=== PATIENT | female | born 1935 | race American Indian/Alaskan Native ===

== ENCOUNTER 2019-11-26 12:57 | Emergency (ER) | payer MEDICARE, BC, OTHER ==
--- NOTE | 2019-11-26 13:02 | EDM.PDOC ---
"ED HPI GENERAL MEDICAL PROBLEM - General Chief Complaint: Trauma Stated Complaint: FELL AND HIT HEAD Time Seen by Provider: 11/26/19 13:02 Source of Information: Reports: Patient, RN, RN Notes Reviewed History Limitations: Reports: No Limitations - History of Present Illness INITIAL COMMENTS - FREE TEXT/NARRATIVE: Pt presents to ER from work by POV with c/o that she tripped over a fan cord and bumped her head. Denies LOC, neck pain, or any other injury. She later admits to soreness of the left thigh and hip area, left shoulder and across the shoulders and neck. TRAUMA NOTES: ARRIVAL TIME: 1300HRS C-COLLAR STATUS: No collar. C-spin clear by Hx and exam using NEXUS criteria. SPINAL BOARD/IMMOBILIZATION STATUS: N/A GCS ON ARRIVAL: 15 Onset: Today, Sudden Duration: Resolved Prior to Arrival Location: Reports: Head Quality: Reports: Ache Severity: Mild Improves with: Reports: None Worsens with: Reports: None Associated Symptoms: Reports: No Other Symptoms - Related Data Allergies Allergy/AdvReac Type Severity Reaction Status Date / Time No Known Allergies Allergy Verified 11/26/19 13:14 Home Meds: Home Meds Aspirin [Halfprin] 81 mg PO DAILY 11/26/19 [History] Metoprolol Tartrate 50 mg PO BID 11/26/19 [History] Raloxifene [Evista] 60 mg PO DAILY 11/26/19 [History] Triamterene/Hydrochlorothiazid [Triamterene-HCTZ 37.5-25 MG] 1 tab PO DAILY 11/26/19 [History] atorvaSTATin [Lipitor] 10 mg PO DAILY 11/26/19 [History] lisinopriL [Prinivil] 20 mg PO DAILY 11/26/19 [History] Past Medical History HEENT History: Reports: Impaired Vision Cardiovascular History: Reports: High Cholesterol, Hypertension Musculoskeletal History: Reports: Osteoarthritis Endocrine/Metabolic History: Reports: Osteoporosis Social & Family History - Family History Family Medical History: Noncontributory - Tobacco Use Smoking Status *Q: Never Smoker - Alcohol Use Alcohol Use History: No - Living Situation & Occupation Occupation: Employed Review of Systems - Review of Systems Review Of Systems: Comprehensive ROS is negative, except as noted in HPI. ED EXAM, GENERAL - Physical Exam Exam: See Below Free Text/Narrative:: PRIMARY TRAUMA SURVEY (1302hrs) AIRWAY: Patent nasal and oral airways. BREATHING: Spontaneous respirations with clear B/L breath sounds. CIRCULATION: Heart RRR, intact distal pulses at all four extremities, no cyanosis. DEFORMITY/DISABILITY: Head is NC with tender hematoma and soft tissue swelling to the left frontal/forehead with no bony depression or crepitus and intact skin. Neck nontender to palpation with full ROM. No long bone deformities, moves all extremities without pain, ambulates steadily. Pelvis stable. No active bleeding. No neuro. deficits. Abdomen benign to exam. EXPOSURE: Skin warm, and dry. SECONDARY TRAUMA SURVEY FOLLOWS (1320hrs) Exam Limited By: No Limitations General Appearance: Alert, WD/WN, No Apparent Distress Eye Exam: Bilateral Eye: EOMI, Normal Inspection, PERRL Ears: Normal External Exam, Normal Canal, Hearing Grossly Normal, Normal TMs Nose: Normal Inspection, Normal Mucosa, No Blood Throat/Mouth: Normal Inspection, Normal Lips, Normal Teeth, Normal Gums, Normal Oropharynx, Normal Voice, No Airway Compromise Head: Normocephalic, Other (Forehead as per primary survey.) Neck: Normal Inspection, Supple, Non-Tender, Full Range of Motion Respiratory/Chest: No Respiratory Distress, Lungs Clear, Normal Breath Sounds, No Accessory Muscle Use, Chest Non-Tender Cardiovascular: Regular Rate, Rhythm GI/Abdominal: Normal Bowel Sounds, Soft, Non-Tender Back Exam: Normal Inspection Extremities: Normal Inspection, Normal Range of Motion, Non-Tender, Normal Capillary Refill Neurological: Alert, Oriented, CN II-XII Intact, Normal Cognition, Normal Gait, No Motor/Sensory Deficits, Other (GCS 15 on arrival and at discharge (<1 hour)) Psychiatric: Normal Affect, Normal Mood Skin Exam: Warm, Dry, Intact, No Rash Course - Vital Signs Last Recorded V/S: Last Vital Signs Temp 96.9 F 11/26/19 13:04 Pulse 68 11/26/19 13:04 Resp 18 11/26/19 13:04 BP 147/58 H 11/26/19 13:04 Pulse Ox 95 11/26/19 13:04 - Orders/Labs/Meds Orders: Active Orders 24 hr Category Date Time Status Head wo Cont [CT] Stat Exams 11/26/19 13:02 Ordered - Radiology Interpretation Free Text/Narrative:: [facility] [place] [facility] Final Radiology Report Call: [phone] assistance Online chat: [email or web address] Name: DANTE CAO Age: 83Years F Date: 11/26/2019 SSN: -- : [id number] Study: CT HEAD WO CONT Requesting Physician: KYRA LOMAS Images: [id number] Addl Studies: Provided Clinical History: Ground level fall, head injury on anticoagulant tx Contrast: Without Contrast Medium: Contrast Amount: Contrast Method: Page 1 of 2 PROCEDURE INFORMATION: Exam: CT Head Without Contrast Exam date and time: 11/26/2019 1:08 PM Age: 83 years old Clinical indication: Injury or trauma; Fall; Initial encounter; Blunt trauma (contusions or hematomas); Consciousness not specified; Additional info: Ground level fall, head injury on anticoagulant tx TECHNIQUE: Imaging protocol: Computed tomography of the head without contrast. Radiation optimization: All CT scans at this facility use at least one of these dose optimization techniques: automated exposure control; mA and/or kV adjustment per patient size (includes targeted exams where dose is matched to clinical indication); or iterative reconstruction. COMPARISON: No relevant prior studies available. FINDINGS: Brain: The brain demonstrates mild generalized volume loss. No hemorrhage or edema seen. Ventricles: No ventriculomegaly. Bones/joints: No acute calvarial fracture seen. Degenerative changes of the right temporomandibular joint. Sinuses: Visualized sinuses are unremarkable. No fluid levels. Mastoid air cells: Visualized mastoid air cells are well aerated. Soft tissues: Left frontal scalp soft tissue swelling with hematoma. IMPRESSION: No acute intracranial abnormality seen. Thank you for allowing us to participate in the care of your patient. DANTE CAO | Final Radiology Report CONFIDENTIALITY STATEMENT This report is intended only for use by the referring physician, and only in accordance with law. If you received this in error, call [phone]. Page 2 of 2 Dictated and Authenticated by: Ramandeep Diamond MD 11/26/2019 1:24 PM Central Time ([place] & [place]) Departure - Departure Time of Disposition: 13:32 Disposition: Home, Self-Care 01 Condition: Good Clinical Impression: Fall from ground level Traumatic hematoma of forehead Qualifiers: Encounter type: initial encounter Qualified Code(s): S00.83XA - Contusion of other part of head, initial encounter - Discharge Information *PRESCRIPTION DRUG MONITORING PROGRAM REVIEWED*: Not Applicable *COPY OF PRESCRIPTION DRUG MONITORING REPORT IN PATIENT CARA: Not Applicable Instructions: Facial or Scalp Contusion, Periosteal Hematoma, How to Use Cold Therapy, [id number] Forms: ED Department Discharge Additional Instructions: Apply ice pack to forehead to reduce pain and swelling. Tylenol at needed for pain. Follow directions on label for dosing and precautions. Follow up in clinic if any further concerns. Sepsis Event Note (ED) - Focused Exam Vital Signs: Vital Signs Temp Pulse Resp BP Pulse Ox 11/26/19 13:04 96.9 F 68 18 147/58 H 95 - My Orders Last 24 Hours: My Active Orders 11/26/19 13:02 Head wo Cont [CT] Stat - Assessment/Plan Last 24 Hours: My Active Orders 11/26/19 13:02 Head wo Cont [CT] Stat"
--- NOTE | 2019-11-26 13:24 | CT ---
PROCEDURE INFORMATION: Exam: CT Head Without Contrast Exam date and time: 11/26/2019 1:08 PM Age: 83 years old Clinical indication: Injury or trauma; Fall; Initial encounter; Blunt trauma (contusions or hematomas); Consciousness not specified; Additional info: Ground level fall, head injury on anticoagulant tx TECHNIQUE: Imaging protocol: Computed tomography of the head without contrast. Radiation optimization: All CT scans at this facility use at least one of these dose optimization techniques: automated exposure control; mA and/or kV adjustment per patient size (includes targeted exams where dose is matched to clinical indication); or iterative reconstruction. COMPARISON: No relevant prior studies available. FINDINGS: Brain: The brain demonstrates mild generalized volume loss. No hemorrhage or edema seen. Ventricles: No ventriculomegaly. Bones/joints: No acute calvarial fracture seen. Degenerative changes of the right temporomandibular joint. Sinuses: Visualized sinuses are unremarkable. No fluid levels. Mastoid air cells: Visualized mastoid air cells are well aerated. Soft tissues: Left frontal scalp soft tissue swelling with hematoma. IMPRESSION: No acute intracranial abnormality seen.
== END 2019-11-26 13:47 | disposition home or self-care (01) ==
LOC: DL.ED 12:57
DX: S00.83XA Contusion of other part of head, initial encounter (principal); E78.00 Pure hypercholesterolemia, unspecified; I10 Essential (primary) hypertension; M19.90 Unspecified osteoarthritis, unspecified site; Z79.82 Long term (current) use of aspirin; Z79.899 Other long term (current) drug therapy; W01.10XA Fall on same level from slipping, tripping and stumbling with subsequent striking against unspecified object, initial encounter
CPT/HCPCS: 70450; 99283-25

== ENCOUNTER 2019-12-27 08:50 | Emergency (ER) | payer MEDICARE, BC, OTHER ==
--- NOTE | 2019-12-27 09:38 | CT ---
PROCEDURE INFORMATION: Exam: CT Pelvis Without Contrast; Skeletal Exam date and time: 12/27/2019 9:16 AM Age: 83 years old Clinical indication: Hip pain; Left hip; Additional info: Bony pelvis pain, status post fall, left side TECHNIQUE: Imaging protocol: Computed tomography images of the pelvis without contrast. Exam focused on the skeletal structures. Radiation optimization: All CT scans at this facility use at least one of these dose optimization techniques: automated exposure control; mA and/or kV adjustment per patient size (includes targeted exams where dose is matched to clinical indication); or iterative reconstruction. COMPARISON: No relevant prior studies available. FINDINGS: Stomach and bowel: Colonic diverticulosis. Appendix: Normal appendix. Reproductive: The overall appearance of the uterus and ovaries is within normal limits. Incidentally noted vaginal pessary. Vasculature: Diffuse atherosclerosis. Bones/joints: Acute angulated and mildly displaced left subcapital proximal femur fracture. All other bones are intact and normally aligned. Small left hip joint effusion/hemarthrosis. Soft tissues: No soft tissue hematoma. IMPRESSION: 1. Acute left femur subcapital fracture. No soft tissue hematoma. The fracture is mildly displaced and angulated. 2. Other incidental findings include atherosclerosis and colonic diverticulosis.
[2019-12-27] MEDS ORDERED: HYDROmorphone 1 MG/ML Syringe IVPUSH ONE ×2 (10:05→14:31)
[2019-12-27] MEDS ORDERED: Ondansetron 4 MG/2 ML SDV IV ONE ×2 (10:05→14:31)
--- NOTE | 2019-12-27 10:23 | EDM.PDOC ---
"ED HPI GENERAL MEDICAL PROBLEM - General Chief Complaint: Lower Extremity Injury/Pain Stated Complaint: CALL IN/AMBULANCE Time Seen by Provider: 12/27/19 09:10 Source of Information: Reports: Patient, Family, RN, RN Notes Reviewed History Limitations: Reports: No Limitations - History of Present Illness INITIAL COMMENTS - FREE TEXT/NARRATIVE: Patient presents to the ED via EMS with daughter with complaints of left hip, left low back pain. The patient relates she has a history of one fall early in November for which she was treated in this ED; imaging was negative for fract ure and she was scheduled to follow up with her primary provider. She states she sustained one additional fall on 12/20/19 prior to her scheduled PCP appointment on 12/24/19, for which no imaging was obtained. She states the pain in her left hip has progressively worsened over the past several days to the point she is unable to lift her left leg, sit up, roll over, or ambulate. She describes the pain localized to the left hip as cramping and grabbing in nature. It radiates from the left lateral hip down into her left anterior thigh. She has been taking Tylenol 650mg q6h with no relief. Left Hip Pain Score (Numeric/FACES): 8 - Related Data Allergies Allergy/AdvReac Type Severity Reaction Status Date / Time No Known Allergies Allergy Verified 12/27/19 08:57 Home Meds: Home Meds Aspirin [Halfprin] 81 mg PO DAILY 11/26/19 [History] Metoprolol Tartrate 50 mg PO BID 11/26/19 [History] Raloxifene [Evista] 60 mg PO DAILY 11/26/19 [History] Triamterene/Hydrochlorothiazid [Triamterene-HCTZ 37.5-25 MG] 1 tab PO DAILY 11/26/19 [History] atorvaSTATin [Lipitor] 10 mg PO DAILY 11/26/19 [History] lisinopriL [Prinivil] 20 mg PO DAILY 11/26/19 [History] Past Medical History HEENT History: Reports: Impaired Vision Cardiovascular History: Reports: High Cholesterol, Hypertension Respiratory History: Reports: None Gastrointestinal History: Reports: None Genitourinary History: Reports: None ELECTRONIC IMAGER History: Reports: None Musculoskeletal History: Reports: Osteoarthritis Neurological History: Reports: None Psychiatric History: Reports: None Endocrine/Metabolic History: Reports: Osteoporosis Hematologic History: Reports: None Immunologic History: Reports: None Oncologic (Cancer) History: Reports: None Dermatologic History: Reports: None - Infectious Disease History Infectious Disease History: Reports: None - Past Surgical History Head Surgeries/Procedures: Reports: None Social & Family History - Family History Family Medical History: Noncontributory - Tobacco Use Smoking Status *Q: Never Smoker Second Hand Smoke Exposure: No - Caffeine Use Caffeine Use: Reports: None - Recreational Drug Use Recreational Drug Use: No - Living Situation & Occupation Occupation: Employed Review of Systems - Review of Systems Review Of Systems: Comprehensive ROS is negative, except as noted in HPI. ED EXAM, GENERAL - Physical Exam Exam: See Below Exam Limited By: No Limitations General Appearance: Alert, WD/WN, Mild Distress Throat/Mouth: Normal Inspection, Normal Voice, No Airway Compromise Head: Atraumatic, Normocephalic Neck: Normal Inspection, Supple, Non-Tender Respiratory/Chest: No Respiratory Distress, Lungs Clear, Normal Breath Sounds, No Accessory Muscle Use, Chest Non-Tender Cardiovascular: Regular Rate, Rhythm, No Edema, No Murmur, No Rub GI/Abdominal: Normal Bowel Sounds, Soft, Non-Tender, No Distention, No Mass (Female) Exam: Deferred Rectal (Female) Exam: Deferred Extremities: Leg Pain (To left upper leg), Limited Range of Motion (To left). No: Pedal Edema, Joint Swelling, Mottled, Redness Neurological: Alert, Oriented, CN II-XII Intact Skin Exam: Warm, Dry, Intact, Normal Color, No Rash. No: Erythema, Mottled Course - Vital Signs Last Recorded V/S: Last Vital Signs Temp 98.1 F 12/27/19 15:16 Pulse 96 12/27/19 15:16 Resp 18 12/27/19 15:16 BP 140/49 L 12/27/19 15:16 Pulse Ox 98 12/27/19 15:16 - Orders/Labs/Meds Orders: Active Orders 24 hr Category Date Time Status Insert Patel Catheter [Insert Urinary Catheter] [OM.PC] Care 12/27/19 09:30 Ordered Q24H Urinary Catheter Assessment [RC] ASDIRECTED Care 12/27/19 09:27 Active NPO Now [Nothing per Oral Now Diet] [DIET] Diet 12/27/19 Lunch Active Meds: Medications Discontinued Medications Generic Name Dose Route Start Last Admin Trade Name Freq PRN Reason Stop Dose Admin Hydromorphone HCl 1 mg 12/27/19 10:05 12/27/19 10:48 Dilaudid IVPUSH 12/27/19 10:06 1 mg ONETIME ONE Administration Hydromorphone HCl 1 mg 12/27/19 14:31 12/27/19 15:33 Dilaudid IVPUSH 12/27/19 14:32 1 mg ONETIME ONE Administration Ondansetron HCl 4 mg 12/27/19 10:05 12/27/19 10:48 Zofran IV 12/27/19 10:06 4 mg ONETIME ONE Administration Ondansetron HCl 4 mg 12/27/19 14:31 12/27/19 15:35 Zofran IV 12/27/19 14:32 4 mg ONETIME ONE Administration - Radiology Interpretation Free Text/Narrative:: [facility] [place] [facility] Final Radiology Report Call: [phone] assistance Online chat: [email or web address] Name: DANTE CAO Age: 83Years F Date: 12/27/2019 SSN: -- : 1935 Study: CT PELVIS WO CONT Requesting Physician: Magda Woodall Images: [id number] Addl Studies: Provided Clinical History: Bony pelvis pain, status post fall, left side Contrast: Without Contrast Medium: Contrast Amount: Contrast Method: Page 1 of 2 PROCEDURE INFORMATION: Exam: CT Pelvis Without Contrast; Skeletal Exam date and time: 12/27/2019 9:16 AM Age: 83 years old Clinical indication: Hip pain; Left hip; Additional info: Bony pelvis pain, status post fall, left side TECHNIQUE: Imaging protocol: Computed tomography images of the pelvis without contrast. Exam focused on the skeletal structures. Radiation optimization: All CT scans at this facility use at least one of these dose optimization techniques: automated exposure control; mA and/or kV adjustment per patient size (includes targeted exams where dose is matched to clinical indication); or iterative reconstruction. COMPARISON: No relevant prior studies available. FINDINGS: Stomach and bowel: Colonic diverticulosis. Appendix: Normal appendix. Reproductive: The overall appearance of the uterus and ovaries is within normal limits. Incidentally noted vaginal pessary. Vasculature: Diffuse atherosclerosis. Bones/joints: Acute angulated and mildly displaced left subcapital proximal femur fracture. All other bones are intact and normally aligned. Small left hip joint effusion/hemarthrosi s. Soft tissues: No soft tissue hematoma. IMPRESSION: 1. Acute left femur subcapital fracture. No soft tissue hematoma. The fracture is mildly displaced and angulated. 2. Other incidental findings include atherosclerosis and colonic diverticulosis. DANTE CAO | Final Radiology Report CONFIDENTIALITY STATEMENT This report is intended only for use by the referring physician, and only in accordance with law. If you received this in error, call [phone]. Page 2 of 2 Thank you for allowing us to participate in the care of your patient. Dictated and Authenticated by: Tim Corrales MD 12/27/2019 9:37 AM Central Time ([place] & [place]) - Re-Assessments/Exams Free Text/Narrative Re-Assessment/Exam: 12/27/19 11:43 Patient to transfer to [facility] in the care of Dr. Aguayo for left femur subcapital fracture. [facility] contacted with no beds available. Patient to be held in extended stay at this facility until a bed becomes available at [facility]. Departure - Departure Time of Disposition: 15:37 Disposition: DC/Tfer to Acute Hospital 02 Condition: Good Clinical Impression: Fracture of neck of femur, hip - Discharge Information *PRESCRIPTION DRUG MONITORING PROGRAM REVIEWED*: Not Applicable *COPY OF PRESCRIPTION DRUG MONITORING REPORT IN PATIENT CARA: Not Applicable Forms: ED Department Discharge, Interfacility Transfer GEOFF Sepsis Event Note (ED) - Evaluation Sepsis Screening Result: No Definite Risk - Focused Exam Vital Signs: Vital Signs Temp Pulse Resp BP Pulse Ox 12/27/19 15:16 98.1 F 96 18 140/49 L 98 12/27/19 13:49 97.3 F 99 20 114/43 L 97 12/27/19 11:24 97.5 F 98 16 110/50 L 96 12/27/19 10:25 98.1 F 86 16 135/70 98 12/27/19 08:58 98.0 F 108 H 16 137/59 L 97 - My Orders Last 24 Hours: My Active Orders 12/27/19 09:27 Urinary Catheter Assessment [RC] ASDIRECTED 12/27/19 09:30 Insert Patel Catheter [Insert Urinary Catheter] [OM.PC] Q24H - Assessment/Plan Last 24 Hours: My Active Orders 12/27/19 09:27 Urinary Catheter Assessment [RC] ASDIRECTED 12/27/19 09:30 Insert Patel Catheter [Insert Urinary Catheter] [OM.PC] Q24H"
== END 2019-12-27 15:45 ==
LOC: DL.ED 08:50
DX: S72.012A Unspecified intracapsular fracture of left femur, initial encounter for closed fracture (principal); E78.00 Pure hypercholesterolemia, unspecified; I10 Essential (primary) hypertension; M19.90 Unspecified osteoarthritis, unspecified site; Z79.82 Long term (current) use of aspirin; Z79.899 Other long term (current) drug therapy; W19.XXXA Unspecified fall, initial encounter
CPT/HCPCS: 51702; 72192; 96374; 96375; 96376; 99285; J1170; J2405; 99284

== ENCOUNTER 2019-12-31 13:12 | Inpatient (IN) | payer MEDICARE, BC, OTHER ==
[2019-12-31] MEDS ORDERED: Piperacillin/Tazobactam 3.375 GM in Sodium Chloride 0.9% 100 ML IV ONE (15:00)
[2019-12-31] MEDS ORDERED: oxyCODONE 5 MG Tab PO PRN (15:30)
--- NOTE | 2019-12-31 15:31 | PCM.HP ---
H&P History of Present Illness - General Date of Service: 12/31/19 Admit Problem/Dx: Admission Diagnosis/Problem Admission Diagnosis/Problem Sepsis Source of Information: Patient, Old Records, Provider - History of Present Illness Initial Comments - Free Text/Narative: Ms. Echavarrai is an 84-year-old female with medical history significant for hypertension, hyperlipidemia, TIA, breast cancer treated with tamoxifen and surgery, osteoporosis, GERD, and recent closed subcapital fracture of the left femur status post left hemiarthroplasty at [facility] in [place] who is admitted for probable sepsis. Patient was in the hospital in [place] for left hip fracture. She reports that she fell on 11/26/2019. Was seen in the ED where x-rays were obtained. X-ray was negative. Patient was discharged home and subsequently followed up with worsening left hip pain limiting her mobility. CT scan was obtained which showed left subcapital fracture and was transferred to [facility] for further management. Patient underwent left hemiarthroplasty. During hospitalization, patient reports that she was noted to have low hemoglobin was started on iron replacement. She also reports that she was taken off 1 of her blood pressure medications and started on sodium chloride tabs. Upon chart review, patient has leukocytosis with WBC count trending up from 6.4 to 18.2 today. Help her discharge vitals showed blood pressure 102/62 with a heart rate of 122 and temperature of 96.4. Vitals on presentation with systolic blood pressure of 105 for diastolic of 59 with a map of 53. Heart rate of 104. O2 saturation was 90% on room air. Patient reports left hip pain that is improved compared to when she was diagnosed with hip fracture. She reports that she has some bloody discharge from the surgical site which she was told should be expected. She reports that she has not been drinking much but also has had poor urine output. Reports that she feels bloated and gassy. Denies nausea and vomiting. She denies fevers, chills, cough, chest pain, shortness of breath, dysuria, hematuria, melena, hematochezia, or any new symptoms. - Related Data Allergies/Adverse Reactions: Allergies Allergy/AdvReac Type Severity Reaction Status Date / Time simvastatin Allergy Abdominal Verified 12/31/19 11:27 Pain Home Medications: Home Meds Aspirin [Halfprin] 81 mg PO DAILY 11/26/19 [History] Raloxifene [Evista] 60 mg PO BEDTIME 11/26/19 [History] atorvaSTATin [Lipitor] 10 mg PO BEDTIME 11/26/19 [History] lisinopriL [Prinivil] 20 mg PO DAILY 11/26/19 [History] Acetaminophen 1,000 mg PO BID 12/31/19 [History] Enoxaparin [Lovenox] 40 mg SUBCUT DAILY 12/31/19 [History] Metoprolol Tartrate [Lopressor] 50 mg PO BID 12/31/19 [History] Omeprazole 20 mg PO ACBREAKFAST 12/31/19 [History] Sodium Chloride 1 gm PO BID 12/31/19 [History] Zolpidem [Ambien] 5 mg PO BEDTIME PRN 12/31/19 [History] oxyCODONE 5 mg PO Q8H PRN 12/31/19 [History] polyethylene glycoL 3350 [Polyethylene Glycol 3350] 17 gm PO BID 12/31/19 [History] Past Medical History HEENT History: Reports: Impaired Vision Cardiovascular History: Reports: High Cholesterol, Hypertension Respiratory History: Reports: None Gastrointestinal History: Reports: None Genitourinary History: Reports: None [employer] History: Reports: None Musculoskeletal History: Reports: Osteoarthritis Neurological History: Reports: None Psychiatric History: Reports: None Endocrine/Metabolic History: Reports: Osteoporosis Hematologic History: Reports: None Immunologic History: Reports: None Oncologic (Cancer) History: Reports: None Dermatologic History: Reports: None - Infectious Disease History Infectious Disease History: Reports: None - Past Surgical History Head Surgeries/Procedures: Reports: None Social & Family History - Family History Family Medical History: Noncontributory - Caffeine Use Caffeine Use: Reports: None - Living Situation & Occupation Occupation: Employed H&P Review of Systems - Review of Systems: Review Of Systems: Comprehensive ROS is negative, except as noted in HPI. Exam - Exam Exam: See Below - Exam General: Alert, Oriented, Cooperative, Mild Distress HEENT: Conjunctiva Clear, EOMI, Hearing Intact Neck: Supple, Trachea Midline Lungs: Clear to Auscultation, Normal Respiratory Effort Cardiovascular: Regular Rhythm, Normal S1, Normal S2, Tachycardia GI/Abdominal Exam: Normal Bowel Sounds, Soft, Non-Tender, No Distention Extremities: Other (Left hip with surgical dressing in place, with bloody discharge. ) Skin: Warm, Dry, Intact (Except for surgical site) Neuro Extensive - Mental Status: Alert, Oriented x3, Normal Mood/Affect, Normal Cognition, Memory Intact Psychiatric: Alert, Normal Affect, Normal Mood - Problem List (1) Hyponatremia SNOMED Code(s): 64226402 ICD Code: E87.1 - HYPO-OSMOLALITY AND HYPONATREMIA Status: Acute Current Visit: Yes (2) Hyperlipidemia SNOMED Code(s): 46426866 ICD Code: E78.5 - HYPERLIPIDEMIA, UNSPECIFIED Status: Acute Current Visit: Yes (3) Hypertension SNOMED Code(s): 23638803 ICD Code: I10 - ESSENTIAL (PRIMARY) HYPERTENSION Status: Acute Current Visit: Yes (4) Anemia SNOMED Code(s): 508587844 ICD Code: D64.9 - ANEMIA, UNSPECIFIED Status: Acute Current Visit: Yes (5) GERD (gastroesophageal reflux disease) SNOMED Code(s): 539018006 ICD Code: K21.9 - GASTRO-ESOPHAGEAL REFLUX DISEASE WITHOUT ESOPHAGITIS Status: Acute Current Visit: Yes Problem List Initiated/Reviewed/Updated: Yes Orders Last 24hrs: Active Orders 24 hr Category Date Time Status Patient Status [ADT] Routine ADT 12/31/19 14:42 Active Oxygen Therapy [RC] PRN Care 12/31/19 14:42 Active VTE/DVT Education [RC] PER UNIT ROUTINE Care 12/31/19 14:42 Active Vital Signs [RC] Q4H Care 12/31/19 14:42 Active CULTURE BLOOD [BC] Stat Lab 12/31/19 14:45 Ordered CULTURE BLOOD [BC] Stat Lab 12/31/19 14:45 Ordered CULTURE URINE [RM] Routine Lab 12/31/19 14:46 Ordered ESR [SEDIMENTATION RATE MANUAL] [HEME] Routine Lab 12/31/19 15:14 Ordered SODIUM,NA [CHEM] Routine Lab 12/31/19 15:14 Ordered UA W/MICROSCOPIC [URIN] Routine Lab 12/31/19 14:46 Ordered Pharmacy to Dose - Vancomycin Med 12/31/19 14:45 Active 1 dose .XX ASDIRECTED Piperacillin/Tazobactam [Zosyn] 3.375 gm Med 12/31/19 15:00 Active Sodium Chloride 0.9% [Normal Saline] 100 ml IV ONETIME Vancomycin 1 gm Med 12/31/19 15:15 Active Sodium Chloride 0.9% [Normal Saline (AdvBag)] 250 ml IV ONETIME Blood Culture x2 Reflex Set [OM.PC] Stat Oth 12/31/19 14:44 Ordered Resuscitation Status Routine Resus Stat 12/31/19 14:41 Ordered Medication Orders Piperacillin Sod/Tazobactam (Sod 3.375 gm/ Sodium Chloride) 100 mls @ 200 mls/hr IV ONETIME ONE Stop: 12/31/19 15:29 Vancomycin HCl 1 gm/ Sodium (Chloride) 250 mls @ 166.667 mls/hr IV ONETIME ONE Stop: 12/31/19 16:44 Vancomycin HCl (Pharmacy To Dose - Vancomycin) 1 dose .XX ASDIRECTED [facility] Assessment/Plan Comment:: Probable sepsis: Patient with tachycardia, leukocytosis, and relatively low blood pressures given that her blood pressure medications have been held for a few days. Obtain 2 sets of blood cultures Start vancomycin and Zosyn Check UA and urine culture Check ESR and CRP I discussed with Dr. Deutsch who is kind enough to accept patient back to his service. #Hyponatremia, probable SIADH. Patient has had low sodium levels, last documented sodium level was from May 2019 which was 131. Her hydrochlorothiazide has been held for about 48 hours and she has been on sodium chloride tabs for about 48 hours. However, sodium level dropped from 126 to 122. Given the patient's pain is significantly improved compared to when she was initially admitted, uncertain if this is purely due to SIADH secondary to pain. Given her history of breast cancer, there is a possibility that she has SIADH due to malignancy. However, 1 would expect improvement with salt tabs and fluid restrictions. Obtain urine sodium Continue holding hydrochlorothiazide Continue sodium chloride tabs for now Monitor sodium levels #Acute on chronic anemia: Patient presented to the hospital in [place] with hemoglobin around 10. Hemoglobin of 7.7 today. Continue iron replacement Monitor CBC Transfuse for hemoglobin less than 7 or if hemodynamically unstable #Left hip fracture #Status post left hemiarthroplasty: Surgical site with small amount of blood draining. Defect management to orthopedic surgery #Hypertension: Blood pressures on the low side of normal. Given concern for possible sepsis, will hold blood pressure medications at this time Monitor blood pressures carefully GERD: Continue Prilosec #Hyperlipidemia Continue Lipitor DVT prophylaxis: Lovenox per orthopedic surgery GI prophylaxis: CODE STATUS: Full code per patient preference.
--- NOTE | 2019-12-31 15:45 | PCM.DCSUM1 ---
Discharge Summary - Hospital Course Free Text/Narrative:: HPI: Ms. Echavarria is an 84-year-old female with medical history significant for hypertension, hyperlipidemia, TIA, breast cancer treated with tamoxifen and surgery, osteoporosis, GERD, and recent closed subcapital fracture of the left femur status post left hemiarthroplasty at [facility] in [place] who is admitted for probable sepsis. Patient was in the hospital in [place] for left hip fracture. She reports that she fell on 11/26/2019. Was seen in the ED where x-rays were obtained. X-ray was negative. Patient was discharged home and subsequently followed up with worsening left hip pain limiting her mobility. CT scan was obtained which showed left subcapital fracture and was transferred to [facility] for further management. Patient underwent left hemiarthroplasty. During hospitalization, patient reports that she was noted to have low hemoglobin was started on iron replacement. She also reports that she was taken off 1 of her blood pressure medications and started on sodium chloride tabs. Upon chart review, patient has leukocytosis with WBC count trending up from 6.4 to 18.2 today. Help her discharge vitals showed blood pressure 102/62 with a heart rate of 122 and temperature of 96.4. Vitals on presentation with systolic blood pressure of 105 for diastolic of 59 with a map of 53. Heart rate of 104. O2 saturation was 90% on room air. Patient reports left hip pain that is improved compared to when she was diagnosed with hip fracture. She reports that she has some bloody discharge from the surgical site which she was told should be expected. She reports that she has not been drinking much but also has had poor urine output. Reports that she feels bloated and gassy. Denies nausea and vomiting. She denies fevers, chills, cough, chest pain, shortness of breath, dysuria, hematuria, melena, hematochezia, or any new symptoms. Probable sepsis: Patient with tachycardia, leukocytosis, and relatively low blood pressures given that her blood pressure medications have been held for a f ew days. Obtain 2 sets of blood cultures Start vancomycin and Zosyn Check UA and urine culture Check ESR and CRP I discussed with Dr. Deutsch who is kind enough to accept patient back to his service. #Hyponatremia, probable SIADH. Patient has had low sodium levels, last documented sodium level was from May 2019 which was 131. Her hydrochlorothiazide has been held for about 48 hours and she has been on sodium chloride tabs for about 48 hours. However, sodium level dropped from 126 to 122. Given the patient's pain is significantly improved compared to when she was initially admitted, uncertain if this is purely due to SIADH secondary to pain. Given her history of breast cancer, there is a possibility that she has SIADH due to malignancy. However, 1 would expect improvement with salt tabs and fluid restrictions. Obtain urine sodium Continue holding hydrochlorothiazide Continue sodium chloride tabs for now Monitor sodium levels #Acute on chronic anemia: Patient presented to the hospital in [place] with hemoglobin around 10. Hemoglobin of 7.7 today. Continue iron replacement Monitor CBC Transfuse for hemoglobin less than 7 or if hemodynamically unstable #Left hip fracture #Status post left hemiarthroplasty: Surgical site with small amount of blood draining. Defect management to orthopedic surgery #Hypertension: Blood pressures on the low side of normal. Given concern for possible sepsis, will hold blood pressure medications at this time Monitor blood pressures carefully GERD: Continue Prilosec #Hyperlipidemia Continue Lipitor DVT prophylaxis: Lovenox per orthopedic surgery GI prophylaxis: CODE STATUS: Full code per patient preference. Diagnosis: Stroke: No - Discharge Data Discharge Date: 12/31/19 Discharge Disposition: DC/Tfer to Acute Hospital 02 Condition: Good - Referral to Home Health Primary Care Physician: PCP None - Discharge Diagnosis/Problem(s) (1) Hyponatremia SNOMED Code(s): 95202051 ICD Code: E87.1 - HYPO-OSMOLALITY AND HYPONATREMIA Status: Acute Current Visit: Yes (2) Hyperlipidemia SNOMED Code(s): 68360774 ICD Code: E78.5 - HYPERLIPIDEMIA, UNSPECIFIED Status: Acute Current Visit: Yes (3) Hypertension SNOMED Code(s): 12390970 ICD Code: I10 - ESSENTIAL (PRIMARY) HYPERTENSION Status: Acute Current Visit: Yes (4) Anemia SNOMED Code(s): 564061033 ICD Code: D64.9 - ANEMIA, UNSPECIFIED Status: Acute Current Visit: Yes (5) GERD (gastroesophageal reflux disease) SNOMED Code(s): 857675050 ICD Code: K21.9 - GASTRO-ESOPHAGEAL REFLUX DISEASE WITHOUT ESOPHAGITIS Status: Acute Current Visit: Yes - Discharge Plan *PRESCRIPTION DRUG MONITORING PROGRAM REVIEWED*: No *COPY OF PRESCRIPTION DRUG MONITORING REPORT IN PATIENT CARA: No Home Medications: Home Meds Aspirin [Halfprin] 81 mg PO DAILY 11/26/19 [History] Raloxifene [Evista] 60 mg PO BEDTIME 11/26/19 [History] atorvaSTATin [Lipitor] 10 mg PO BEDTIME 11/26/19 [History] lisinopriL [Prinivil] 20 mg PO DAILY 11/26/19 [History] Acetaminophen 1,000 mg PO BID 12/31/19 [History] Enoxaparin [Lovenox] 40 mg SUBCUT DAILY 12/31/19 [History] Metoprolol Tartrate [Lopressor] 50 mg PO BID 12/31/19 [History] Omeprazole 20 mg PO ACBREAKFAST 12/31/19 [History] Pharmacy to Dose - Vancomycin 1 dose .XX ASDIRECTED each 12/31/19 [Rx] Sodium Chloride 1 gm PO BID 12/31/19 [History] Zolpidem [Ambien] 5 mg PO BEDTIME PRN 12/31/19 [History] oxyCODONE 5 mg PO Q8H PRN 12/31/19 [History] polyethylene glycoL 3350 [Polyethylene Glycol 3350] 17 gm PO BID 12/31/19 [History] - Discharge Summary/Plan Comment DC Time >30 min.: Yes - General Info Date of Service: 12/31/19 Admission Dx/Problem (Free Text: Admission Diagnosis/Problem Admission Diagnosis/Problem Sepsis Subjective Update: See HPI - Patient Data Vitals - Most Recent: Last Vital Signs Temp 98.8 F 12/31/19 14:42 Pulse 102 H 12/31/19 14:42 Resp 20 12/31/19 14:42 BP 105/52 L 12/31/19 14:42 Pulse Ox 90 L 12/31/19 14:42 Med Orders - Current: Current Medications Acetaminophen (Tylenol Extra Strength) 1,000 mg PO BID WILDA Aspirin (Halfprin) 81 mg PO DAILY WILDA Atorvastatin Calcium (Lipitor) 10 mg PO BEDTIME WILDA Enoxaparin Sodium (Lovenox) 40 mg SUBCUT DAILY WILDA Vancomycin HCl 1 gm/ Sodium (Chloride) 250 mls @ 166.667 mls/hr IV ONETIME ONE Stop: 12/31/19 16:44 Non-Formulary Medication (Raloxifene) 60 mg PO BEDTIME WILDA Non-Formulary Medication (Zolpidem) 5 mg PO BEDTIME PRN PRN Reason: Sleep Omeprazole (Omeprazole) 20 mg PO ACBREAKFAST WILDA Oxycodone HCl (Oxycodone) 5 mg PO Q8H PRN PRN Reason: Pain Polyethylene Glycol (Miralax) 17 gm PO BID WILDA Sodium Chloride (Sodium Chloride) 1 gm PO BID WILDA Vancomycin HCl (Pharmacy To Dose - Vancomycin) 1 dose .XX ASDIRECTED WILDA Discontinued Medications Piperacillin Sod/Tazobactam (Sod 3.375 gm/ Sodium Chloride) 100 mls @ 200 mls/hr IV ONETIME ONE Stop: 12/31/19 15:29 Comments:: Unchanged.
[2019-12-31] MEDS ORDERED: Zolpidem 5 MG Tab PO PRN (16:11)
[2019-12-31] MEDS ORDERED: Acetaminophen 500 MG Tab PO SCH (21:00)
[2019-12-31] MEDS ORDERED: Sodium Chloride 1 GM Tab PO SCH (21:00)
[2019-12-31] MEDS ORDERED: atorvaSTATin 20 MG Tab PO SCH (21:00)
[2019-12-31] MEDS ORDERED: RALOXIFENE 60 MG PO SCH (21:00)
[2019-12-31] MEDS ORDERED: Polyethylene Glycol 3350 Powder 17 GM Packet PO SCH (21:00)
[2020-01-01] MEDS ORDERED: Omeprazole 20 MG Cap.CR PO SCH (06:00)
[2020-01-01] MEDS ORDERED: Aspirin 81 MG Tab.EC PO SCH (09:00)
[2020-01-01] MEDS ORDERED: Enoxaparin 40 MG/0.4 ML Syringe SUBCUT SCH (09:00)
== END 2019-12-31 19:00 | DRG 872 ==
LOC: DL.MS 13:12
PROVIDERS: ADMIT Internal Medicine; ATTEND Internal Medicine
DX: A41.9 Sepsis, unspecified organism (principal); E22.2 Syndrome of inappropriate secretion of antidiuretic hormone; K21.9 Gastro-esophageal reflux disease without esophagitis; E78.5 Hyperlipidemia, unspecified; D64.9 Anemia, unspecified; M81.0 Age-related osteoporosis without current pathological fracture; I10 Essential (primary) hypertension; Z86.73 Personal history of transient ischemic attack (TIA), and cerebral infarction without residual deficits; Z85.3 Personal history of malignant neoplasm of breast
CPT/HCPCS: 36415; 83605; 84295; 85651; 87040; A9270-GY; J2543; J3370; J7050

== ENCOUNTER 2021-02-09 11:47 | Emergency (ER) | payer MEDICARE, BC, OTHER ==
--- NOTE | 2021-02-09 13:36 | CR ---
EXAMINATION: Wrist Comp Min 3V Lt SEX: Female AGE: 85 years CLINICAL HISTORY: 85-year-old female injured in fall. Left wrist deformity. Interpretation: Abnormal. Acute distal RADIAL FRACTURE with spoon deformity (Colles' fracture). Dorsal offset distal radius with angulation deformity evident on lateral projection. Impaction but near anatomic alignment in the AP projection. Pronounced soft tissue swelling but no disruption of the radiocarpal joint. Incidentally demonstrated ulnar styloid fracture fragment. Carpal and metacarpal bones intact.
--- NOTE | 2021-02-09 15:32 | EDM.PDOC ---
ED HPI GENERAL MEDICAL PROBLEM - General Chief Complaint: Upper Extremity Injury/Pain Stated Complaint: [id number] FELL AND BROKE LEFT WRIST Time Seen by Provider: 02/09/21 13:06 Source of Information: Reports: Patient History Limitations: Reports: No Limitations - History of Present Illness INITIAL COMMENTS - FREE TEXT/NARRATIVE: This 85 yo female patient reports to the ED with pain in her left wrist. The patient reports she was hurrying to get to the door when she tripped. The patient denies any loss of consciousness before, during or after the incident. Onset: Today Duration: Minutes: Quality: Reports: Ache Severity: Moderate Improves with: Reports: None Worsens with: Reports: None Context: Reports: Other Left Wrist Pain Score (Numeric/FACES): 2 - Related Data Allergies Allergy/AdvReac Type Severity Reaction Status Date / Time simvastatin AdvReac Abdominal Verified 02/09/21 12:55 Pain Home Meds: Home Meds Aspirin [Halfprin] 81 mg PO DAILY 11/26/19 [History] atorvaSTATin [Lipitor] 10 mg PO BEDTIME 11/26/19 [History] Acetaminophen 1,000 mg PO Q4HR PRN 12/31/19 [History] Metoprolol Tartrate [Lopressor] 50 mg PO QAM 12/31/19 [History] Omeprazole 20 mg PO ACBREAKFAST 12/31/19 [History] Zolpidem [Ambien] 5 mg PO BEDTIME PRN 12/31/19 [History] oxyCODONE 5 mg PO Q8H PRN 12/31/19 [History] polyethylene glycoL 3350 [Polyethylene Glycol 3350] 17 gm PO BID 12/31/19 [History] Losartan Potassium 100 mg PO DAILY 02/09/21 [History] Metoprolol Tartrate [Lopressor] 50 mg PO QPM 02/09/21 [History] Past Medical History HEENT History: Reports: Impaired Vision Cardiovascular History: Reports: High Cholesterol, Hypertension Respiratory History: Reports: None Gastrointestinal History: Reports: None Genitourinary History: Reports: None [employer] History: Reports: None Musculoskeletal History: Reports: Osteoarthritis Neurological History: Reports: None Psychiatric History: Reports: None Endocrine/Metabolic History: Reports: Osteoporosis Hematologic History: Reports: None Immunologic History: Reports: None Oncologic (Cancer) History: Reports: None Dermatologic History: Reports: None - Infectious Disease History Infectious Disease History: Reports: None - Past Surgical History Head Surgeries/Procedures: Reports: None Female Surgical History: Reports: Mastectomy Social & Family History - Family History Family Medical History: No Pertinent Family History - Tobacco Use Tobacco Use Status *Q: Never Tobacco User Second Hand Smoke Exposure: No - Caffeine Use Caffeine Use: Reports: Coffee - Recreational Drug Use Recreational Drug Use: No - Living Situation & Occupation Occupation: Employed Review of Systems - Review of Systems Review Of Systems: Comprehensive ROS is negative, except as noted in HPI. ED EXAM, GENERAL - Physical Exam Exam: See Below Exam Limited By: No Limitations General Appearance: Alert, WD/WN, Moderate Distress Eye Exam: Bilateral Eye: EOMI, Normal Inspection, PERRL Ears: Normal External Exam, Normal Canal, Hearing Grossly Normal, Normal TMs Nose: Normal Inspection, Normal Mucosa, No Blood Throat/Mouth: Normal Inspection, Normal Lips, Normal Teeth, Normal Gums, Normal Oropharynx, Normal Voice, No Airway Compromise Head: Atraumatic, Normocephalic Neck: Normal Inspection, Supple, Non-Tender, Full Range of Motion Respiratory/Chest: No Respiratory Distress, Lungs Clear, Normal Breath Sounds, No Accessory Muscle Use, Chest Non-Tender Cardiovascular: Normal Peripheral Pulses, Regular Rate, Rhythm, No Edema, No Gallop, No JVD, No Murmur, No Rub GI/Abdominal: Normal Bowel Sounds, Soft, Non-Tender, No Organomegaly, No Distention, No Abnormal Bruit, No Mass (Female) Exam: Deferred Rectal (Female) Exam: Deferred Back Exam: Normal Inspection, Full Range of Motion, NT Extremities: Arm Pain Neurological: Alert, Oriented, CN II-XII Intact, Normal Cognition, Normal Gait, Normal Reflexes, No Motor/Sensory Deficits Psychiatric: Normal Affect, Normal Mood Skin Exam: Warm, Dry, Intact, Normal Color, No Rash Lymphatic: No Adenopathy ED TRAUMA EXTREMITY PROCEDURES - Joint Reduction Left Wrist Sedation: Conscious Sedation Pre-Procedure NV Status: Normal Post-Procedure NV Status: Normal Technique: Traction/Counter Traction Number of Attempts: 1 Post-Reduction Imaging: Completely Reduced, Fracture Seen Joint Reduction Complications: No Course - Vital Signs Last Recorded V/S: Last Vital Signs Temp 99.2 F 02/09/21 13:06 Pulse 71 02/09/21 13:06 Resp 18 02/09/21 13:06 BP 171/64 H 02/09/21 13:06 Pulse Ox 96 02/09/21 13:06 - Orders/Labs/Meds Orders: Active Orders 24 hr Category Date Time Status Wrist 2V Lt [CR] Urgent Exams 02/09/21 14:30 Ordered Departure - Departure Time of Disposition: 15:35 Disposition: Home, Self-Care 01 Condition: Fair Clinical Impression: Fracture dislocation of left wrist Qualifiers: Encounter type: initial encounter Fracture type: closed Qualified Code(s): S62.102A - Fracture of unspecified carpal bone, left wrist, initial encounter for closed fracture - Discharge Information *PRESCRIPTION DRUG MONITORING PROGRAM REVIEWED*: Not Applicable *COPY OF PRESCRIPTION DRUG MONITORING REPORT IN PATIENT CARA: Not Applicable Instructions: Closed Reduction for Wrist or Forearm Care Plan Goals: The patient was advised of the examination and x-ray results during the visit. The patient should call to establish an appointment with Dr. Osuna ([facility]) for continued evaluation and treatment of her injury. The patient should rest, ice and elevate the extremity over the next 24 hours. If the patient has any additional symptoms or concerns, the patient should either return to the emergency department or visit her primary care facility. Sepsis Event Note (ED) - Evaluation Sepsis Screening Result: No Definite Risk - Focused Exam Vital Signs: Vital Signs Temp Pulse Resp BP Pulse Ox 02/09/21 13:06 99.2 F 71 18 171/64 H 96 - My Orders Last 24 Hours: My Active Orders 02/09/21 14:30 Wrist 2V Lt [CR] Urgent - Assessment/Plan Last 24 Hours: My Active Orders 02/09/21 14:30 Wrist 2V Lt [CR] Urgent
--- NOTE | 2021-02-09 15:52 | CR ---
PROCEDURE INFORMATION: Exam: XR Left Wrist Exam date and time: 02/09/2021 2:46 PM Age: 85 years old Clinical indication: Other: Post reduction TECHNIQUE: Imaging protocol: XR Left wrist. Views: 1 or 2 views. COMPARISON: No relevant prior studies available. FINDINGS: Bones/joints: Comminuted intra-articular fracture distal left radius. Near anatomic alignment. Displaced fracture of the ulnar styloid. Degenerative arthritis STT and 1st [facility] joints. Soft tissues: Soft tissue swelling. Other findings: Cast obscures detail IMPRESSION: Cast in place across healing intra-articular fractures distal left radius and ulna
== END 2021-02-09 15:58 | disposition home or self-care (01) ==
LOC: DL.ED 11:47
DX: S62.102A Fracture of unspecified carpal bone, left wrist, initial encounter for closed fracture (principal); E78.00 Pure hypercholesterolemia, unspecified; I10 Essential (primary) hypertension; Z88.8 Allergy status to other drugs, medicaments and biological substances; Z79.82 Long term (current) use of aspirin; Z79.899 Other long term (current) drug therapy; W01.0XXA Fall on same level from slipping, tripping and stumbling without subsequent striking against object, initial encounter
CPT/HCPCS: 25605; 73100-LT; 73110-LT; 99283-25

== ENCOUNTER 2022-06-24 18:36 | Emergency (ER) | payer BC, MEDICARE ==
[2022-06-24] MEDS ORDERED: Acetaminophen 500 MG Tab PO ONE (19:58)
[2022-06-24] MEDS ORDERED: Ondansetron 4 MG/2 ML SDV IVPUSH ONE (20:49)
[2022-06-24] MEDS ORDERED: fentaNYL 100 MCG/2 ML SDV IVPUSH ONE (20:49)
== END 2022-06-24 20:55 ==
LOC: DL.ED 18:36
DX: S72.002A Fracture of unspecified part of neck of left femur, initial encounter for closed fracture (principal); I10 Essential (primary) hypertension; E78.00 Pure hypercholesterolemia, unspecified; Z88.8 Allergy status to other drugs, medicaments and biological substances; Z79.82 Long term (current) use of aspirin; Z79.899 Other long term (current) drug therapy; W19.XXXA Unspecified fall, initial encounter
CPT/HCPCS: 51702; 72192; 81001; 87086; 87088; 87186; 96374; 96375; 99284; 99285-25; A9270-GY; J2405; J3010